=== PATIENT | male | born 1995 | race Caucasian/White ===

== ENCOUNTER 2018-08-17 13:14 | Emergency (ER) | payer OTHER ==
[2018-08-17 13:52] LABS: Potassium 4.2 mmol/L (3.5-5.1)
--- NOTE | 2018-08-17 14:07 | EDPHYS ---
Physician Documentation [facility] Name: Sheldon Moreno Age: 23 yrs Sex: Male : 1995 Arrival Date: 08/17/2018 Time: 13:15 Bed 25 Private MD: ED Physician Stacie Corona HPI: 08/17 13:32 This 23 yrs old Male presents to ER via EMS with complaints of Probable ma2 Seizure, Drug Abuse. 13:32 The patient presents after having a single isolated seizure. Character of seizure(s): ma2 Loss of consciousness: the patient did not lose consciousness, Motor activity: generalized. Seizure onset: just prior to arrival. Context: occurred shelter. Seizure Hx: the patient has no previous seizure history. Associated injury: The patient did not suffer any apparent associated injury. EMS care: none. Current symptoms: Currently, the patient is not experiencing any symptoms. The patient has not experienced similar symptoms in the past. Historical: - Allergies: 13:19 No Known Allergies; tw2 - Home Meds: 13:19 lisinopril 20 mg Oral tab 1 tab once daily [Active]; tw2 - PMHx: 13:19 Hypertension; tw2 - PSHx: 13:19 None; tw2 - Immunization history:: Adult Immunizations. - Social history:: Smoking status: Patient uses tobacco products, smokes one pack cigarettes per day. Patient uses Patient/guardian denies using alcohol, street drugs, The patient lives with family. - Ebola Screening: : Patient denies travel to an Ebola-affected area in the 21 days before illness onset. - Family history:: not pertinent. ROS: 13:32 Constitutional: Negative for fever, chills, and weight loss, Cardiovascular: Negative ma2 for chest pain, palpitations, and edema, Respiratory: Negative for shortness of breath, cough, wheezing, and pleuritic chest pain, Abdomen/GI: Negative for abdominal pain, nausea, diarrhea, and constipation. 13:32 Neuro: Positive for seizure activity, Negative for altered mental status, gait disturbance, headache, loss of consciousness, numbness, near syncope, tingling, visual changes, weakness. 13:32 All other systems are negative. Exam: 13:32 Constitutional: This is a well developed, well nourished patient who is awake, alert, ma2 and in no acute distress. Chest/axilla: Normal chest wall appearance and motion. Nontender with no deformity. No lesions are appreciated. Cardiovascular: Regular rate and rhythm with a normal S1 and S2. No gallops, murmurs, or rubs. Normal PMI, no JVD. No pulse deficits. Respiratory: Lungs have equal breath sounds bilaterally, clear to auscultation and percussion. No rales, rhonchi or wheezes noted. No increased work of breathing, no retractions or nasal flaring. Abdomen/GI: Soft, non-tender, with normal bowel sounds. No distension or tympany. No guarding or rebound. No evidence of tenderness throughout. Back: No spinal tenderness. No costovertebral tenderness. Full range of motion. Skin: Warm, dry with normal turgor. Normal color with no rashes, no lesions, and no evidence of cellulitis. MS/ Extremity: Pulses equal, no cyanosis. Neurovascular intact. Full, normal range of motion. Neuro: Awake and alert, GCS 15, oriented to person, place, time, and situation. Cranial nerves II-XII grossly intact. Motor strength 5/5 in all extremities. Sensory grossly intact. Cerebellar exam normal. Normal gait. Vital Signs: 13:17 BP 135 / 95; Pulse 89; Resp 18; Temp 97.8(O); Pulse Ox 100% on R/A; Weight 74.39 kg tw2 (R); Pain 0/10; 14:04 BP 112 / 79; Pulse 80; Resp 17; Pulse Ox 100% on R/A; tw2 Jayy Coma Score: 13:19 Eye Response: spontaneous(4). Verbal Response: oriented(5). Motor Response: obeys tw2 commands(6). Total: 15. MDM: 13:23 Patient medically screened. ma2 13:32 Differential diagnosis: cardiac arrhythmia, seizure, TIA, unlikely seizure disorder. ma2 Data reviewed: vital signs, nurses notes, lab test result(s). Response to treatment: the patient's symptoms have resolved after treatment. 13:32 Response to treatment: the patient's symptoms have resolved after treatment. me2 08/17 13:25 Order name: BMP me2 08/17 13:52 Order name: Basic Metabolic Panel; Complete Time: 14:06 EDMS Administered Medications: No medications were administered Disposition: 08/17/18 14:07 Discharged to Home. Impression: Conversion disorder with seizures or convulsions. - Condition is Stable. - Discharge Instructions: Nonepileptic Seizures. - Medication Reconciliation Form, Thank You Letter, Antibiotic Education, Prescription Opioid Use form. - Follow up: Private Physician; When: Tomorrow; Reason: Continuance of care. Signatures: Dispatcher [employer] Isatu Hurt RN RN tw2 Stacie Corona MD MD ma2 Corrections: (The following items were deleted from the chart) 14:28 14:07 08/17/2018 14:07 Discharged to Home. Impression: Conversion disorder with tw2 seizures or convulsions. Condition is Stable. Forms are Medication Reconciliation Form, Thank You Letter, Antibiotic Education, Prescription Opioid Use. Follow up: Private Physician; When: Tomorrow; Reason: Continuance of care. ma2
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
--- NOTE | 2018-08-17 21:22 | EKG ---
Test Date: 2018-08-17 Test Time: 13:13:15 Teacher Physically Impaired: STAR MEASUREMENT RESULTS: Intervals: Rate: 91 ID: [id number] QRSD: 94 QT: 344 QTc: 423 [place]: P: 77 ID: [id number] QRS: 88 T: 35 INTERPRETIVE STATEMENTS: Normal sinus rhythm Normal ECG No previous ECG available for comparison Electronically Signed On 08-17-18 21:20:22 PL SQL DEVELOPER by Vu Sainz
== END 2018-08-17 14:28 | disposition home or self-care (01) ==
LOC: ER 13:14
DX: F44.5 Conversion disorder with seizures or convulsions (principal); I10 Essential (primary) hypertension; F17.210 Nicotine dependence, cigarettes, uncomplicated
CPT/HCPCS: 36415; 80048; 93005; 99284

== ENCOUNTER 2018-08-30 13:20 | Emergency (ER) | payer OTHER ==
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
[2018-08-30] MEDS ORDERED: DERMABOND SKIN ADHESIVE TOP ONE (14:50)
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
== END 2018-08-30 15:45 | disposition home or self-care (01) ==
LOC: ER 13:20
PROC: 0JQ10ZZ Repair Face Subcutaneous Tissue and Fascia, Open Approach (ICD-10-PCS; principal; 2018-08-30)
DX: S01.412A Laceration without foreign body of left cheek and temporomandibular area, initial encounter (principal); S00.531A Contusion of lip, initial encounter; Y04.2XXA Assault by strike against or bumped into by another person, initial encounter; Y93.9 Activity, unspecified; Y92.149 Unspecified place in prison as the place of occurrence of the external cause; I10 Essential (primary) hypertension
CPT/HCPCS: 70450; 70486; 72125; 76377; 99285